=== PATIENT | male | born 1955 | race Caucasian/White ===

== ENCOUNTER → 2016-07-19 | Outpatient (CLI) | payer MEDICARE, MEDICAID ==
[2016-07-19 14:47] LABS: CHLORIDE,CL 106 mmol/L (98-110); SODIUM,NA 138 mmol/L (136-146)
== END | disposition home or self-care (01) ==
LOC: MW.CHIM 13:54
PROVIDERS: ATTEND Internal Medicine
DX: E11.65 Type 2 diabetes mellitus with hyperglycemia (principal); I10 Essential (primary) hypertension; E78.5 Hyperlipidemia, unspecified; Z72.0 Tobacco use
CPT/HCPCS: 36415; 80048; 83036; G0463

== ENCOUNTER → 2016-08-18 | Outpatient (CLI) | payer MEDICARE, MEDICAID | LOC: MW.CHPOD 08:00 | PROVIDERS: ATTEND Podiatrist Foot & Ankle Surgery | DX: E11.65 Type 2 diabetes mellitus with hyperglycemia (principal); E11.40 Type 2 diabetes mellitus with diabetic neuropathy, unspecified; M79.672 Pain in left foot; M20.5X2 Other deformities of toe(s) (acquired), left foot; B35.1 Tinea unguium; I10 Essential (primary) hypertension; E78.5 Hyperlipidemia, unspecified | CPT/HCPCS: 11721; 99204; 99214 ==

== ENCOUNTER 2024-05-18 08:29 | Inpatient (IN) | payer MEDICARE, MEDICAID ==
[2024-05-18] MEDS ORDERED: Sodium Chloride 0.9% 2.5 ML Syringe FLUSH PRN (08:39)
[2024-05-18] MEDS: Ondansetron 4 MG/2 ML SDV IVPUSH ONE (09:16)
[2024-05-18] MEDS: fentaNYL 50 MCG/ML SDV IVPUSH ONE (09:16)
[2024-05-18] MEDS: Sodium Chloride 0.9% 10 ML Syringe FLUSH PRN (09:16)
[2024-05-18 09:22] LABS: BASOPHILS ABSOLUTE AUTO 0.02 K/uL (0.00-0.20); BASOPHILS PERCENT AUTO 0.3 % (0.0-1.0); EOSINOPHILS ABSOLUTE AUTO 0.05 K/uL (0.00-0.45); EOSINOPHILS PERCENT AUTO 0.7 % (0.0-6.0); HEMATOCRIT 27.7 % (42.0-52.0); HEMOGLOBIN 8.2 g/dL (14.0-18.0); IMMATURE GRAN ABSOLUTE AUTO 0.03 K/uL (0.00-0.05); IMMATURE GRAN PERCENT AUTO 0.4 % (0.0-0.4); LYMPHOCYTES ABSOLUTE AUTO 0.22 K/uL (1.00-4.80); LYMPHOCYTES PERCENT AUTO 3.2 % (24.0-44.0); MEAN CORPUSCULAR HEMOGLOBIN 22.6 pg (28.0-32.0); MEAN CORPUSCULAR HGB CONC 29.6 g/dL (32.0-36.0); MEAN CORPUSCULAR VOLUME 76.3 fL (83.0-99.0); MEAN PLATELET VOLUME 11.2 fL (9.4-12.4); MONOCYTES ABSOLUTE AUTO 0.72 K/uL (0.00-0.80); MONOCYTES PERCENT AUTO 10.4 % (0.0-8.0); NEUTROPHILS ABSOLUTE AUTO 5.91 K/uL (1.80-7.70); PLATELET COUNT,PLT 233 K/uL (150-400); RED BLOOD CELL COUNT 3.63 M/uL (4.52-5.90); WHITE BLOOD CELL COUNT,WBC 6.95 K/uL (3.9-11.3)
[2024-05-18 09:34] LABS: INR 1.03 (0.86-1.11); PTT,PARTIAL THROMBOPLSTIN TIME 24.5 SEC (23.9-30.7)
[2024-05-18 09:46] LABS: A/G RATIO 1.1 (0.9-1.6); ALBUMIN 3.2 g/dL (3.4-5.0); BILIRUBIN TOTAL 0.2 mg/dL (0.2-1.0); CALCIUM 7.8 mg/dL (8.5-10.1); CARBON DIOXIDE,CO2 18.5 mmol/L (21.0-32.0); CREATININE 1.1 mg/dL (0.8-1.3); EST CRCL DRUG DOSING (CG) 61.76 mL/min; PROTEIN TOTAL,TP 6.2 g/dL (6.4-8.2)
[2024-05-18] MEDS ORDERED: Naloxone 0.4 MG/ML SDV IVPUSH PRN (10:19)
[2024-05-18 15:46] LABS: APPEARANCE,URINE CLEAR; BILIRUBIN,URINE NEGATIVE (NEGATIVE); COLOR,URINE YELLOW; GLUCOSE,URINE >=1000 mg/dL (NEGATIVE); KETONES,URINE NEGATIVE (NEGATIVE); LEUKOCYTE ESTERASE,URINE NEGATIVE (NEGATIVE); NITRITE,URINE NEGATIVE (NEGATIVE); OCCULT BLOOD,URINE NEGATIVE (NEGATIVE); PH,URINE 6.5 (5.0-8.0); PROTEIN,URINE NEGATIVE (NEGATIVE); UROBILINOGEN,URINE 0.2 EU/dL (<2.0)
[2024-05-18] MEDS: Insulin Aspart 100 Units/ML 3 ML Pen SUBCUT SCH (17:48)
[2024-05-18] MEDS: Morphine 2 MG/ML SYRINGE IVPUSH PRN (18:13)
[2024-05-18] MEDS: Acyclovir 200 MG Cap PO SCH (20:06)
[2024-05-18] MEDS: atorvaSTATin 20 MG Tab PO SCH (20:06)
[2024-05-18] MEDS: OXcarbazepine 300 MG Tab PO SCH (20:06)
[2024-05-18] MEDS: Gabapentin 300 MG Cap PO SCH (20:06)
[2024-05-19] MEDS ORDERED: Sodium Chloride 0.9% 10 ML Syringe FLUSH PRN (08:21)
[2024-05-19] MEDS ORDERED: Polyethylene Glycol 3350 Powder 17 GM Packet PO PRN (08:21)
[2024-05-19] MEDS ORDERED: Sodium Chloride 0.9% 2.5 ML Syringe FLUSH PRN (08:21)
[2024-05-19] MEDS ORDERED: Docusate Sodium 100 MG Cap PO PRN (08:21)
[2024-05-19] MEDS ORDERED: Acetaminophen 325 MG Tab PO PRN (08:21)
[2024-05-19] MEDS ORDERED: Ondansetron 4 MG/2 ML SDV IVPUSH PRN (08:21)
[2024-05-19 08:45] LABS: BASOPHILS ABSOLUTE AUTO 0.01 K/uL (0.00-0.20); BASOPHILS PERCENT AUTO 0.1 % (0.0-1.0); EOSINOPHILS ABSOLUTE AUTO 0.01 K/uL (0.00-0.45); EOSINOPHILS PERCENT AUTO 0.1 % (0.0-6.0); HEMATOCRIT 26.9 % (42.0-52.0); HEMOGLOBIN 8.1 g/dL (14.0-18.0); IMMATURE GRAN ABSOLUTE AUTO 0.02 K/uL (0.00-0.05); IMMATURE GRAN PERCENT AUTO 0.3 % (0.0-0.4); LYMPHOCYTES ABSOLUTE AUTO 0.34 K/uL (1.00-4.80); LYMPHOCYTES PERCENT AUTO 4.9 % (24.0-44.0); MEAN CORPUSCULAR HEMOGLOBIN 22.4 pg (28.0-32.0); MEAN CORPUSCULAR HGB CONC 30.1 g/dL (32.0-36.0); MEAN CORPUSCULAR VOLUME 74.5 fL (83.0-99.0); MEAN PLATELET VOLUME 11.1 fL (9.4-12.4); MONOCYTES ABSOLUTE AUTO 1.28 K/uL (0.00-0.80); MONOCYTES PERCENT AUTO 18.6 % (0.0-8.0); NEUTROPHILS ABSOLUTE AUTO 5.22 K/uL (1.80-7.70); PLATELET COUNT,PLT 221 K/uL (150-400); RED BLOOD CELL COUNT 3.61 M/uL (4.52-5.90); WHITE BLOOD CELL COUNT,WBC 6.88 K/uL (3.9-11.3)
[2024-05-19 09:15] LABS: A/G RATIO 0.9 (0.9-1.6); BILIRUBIN TOTAL 0.5 mg/dL (0.2-1.0); CALCIUM 7.7 mg/dL (8.5-10.1); CARBON DIOXIDE,CO2 24.4 mmol/L (21.0-32.0); CREATININE 0.9 mg/dL (0.8-1.3); EST CRCL DRUG DOSING (CG) 75.48 mL/min; POTASSIUM,K 3.4 mmol/L (3.5-5.1); PROTEIN TOTAL,TP 6.2 g/dL (6.4-8.2)
[2024-05-19] MEDS: Isosorbide Mononitrate 30 MG Tab.ER PO SCH (10:54)
[2024-05-19] MEDS: Metoprolol Succinate 25 MG Tab.ER PO SCH (10:54)
[2024-05-19] MEDS: Escitalopram 10 MG Tab PO SCH (10:54)
[2024-05-19] MEDS: Potassium Chloride 20 MEQ Tab.ER PO ONE (10:55)
[2024-05-19] MEDS: OLANZapine 5 MG Tab PO SCH (10:55)
[2024-05-19] MEDS: Insulin Glargine,Hum.Rec.Anlog 100 UNIT/ML 3 ML Pen SUBCUT STA (11:59)
[2024-05-19] MEDS ORDERED: dexmedeTOMIDine HCl 200 MCG/2 ML SDV ONE (14:57)
[2024-05-19] MEDS ORDERED: Propofol 200 MG/20 ML SDV ONE (14:57)
[2024-05-19] MEDS ORDERED: fentaNYL 100 MCG/2 ML SDV ONE (14:57)
[2024-05-19] MEDS ORDERED: Ketamine HCL/NACL, ISO-OSM 50 MG/5 ML Syringe ONE (15:01)
[2024-05-19] MEDS: ceFAZolin 2 GM in Sodium Chloride 0.9% 50 ML IV ONE (17:40)
[2024-05-19] MEDS: Tranexamic Acid in NACL,ISO-OS 1,000 MG in Premix Bag 1 BAG IV ONE (17:41)
[2024-05-19] MEDS: Heparin Sodium 5,000 Units/ML Vial SUBCUT SCH (17:59)
[2024-05-20 05:44] LABS: HEMATOCRIT 28.6 % (42.0-52.0); HEMOGLOBIN 8.8 g/dL (14.0-18.0); MEAN CORPUSCULAR HEMOGLOBIN 23.2 pg (28.0-32.0); MEAN CORPUSCULAR HGB CONC 30.8 g/dL (32.0-36.0); MEAN CORPUSCULAR VOLUME 75.3 fL (83.0-99.0); MEAN PLATELET VOLUME 10.9 fL (9.4-12.4); PLATELET COUNT,PLT 240 K/uL (150-400); WHITE BLOOD CELL COUNT,WBC 7.29 K/uL (3.9-11.3)
[2024-05-20 06:15] LABS: CALCIUM 7.9 mg/dL (8.5-10.1); CARBON DIOXIDE,CO2 22.9 mmol/L (21.0-32.0); CREATININE 0.8 mg/dL (0.8-1.3); EST CRCL DRUG DOSING (CG) 84.92 mL/min; MAGNESIUM 2.1 mg/dL (1.8-2.4); POTASSIUM,K 3.4 mmol/L (3.5-5.1)
[2024-05-20 06:20] LABS: LYMPHOCYTES ABSOLUTE MAN 0.66 K/uL (1.00-4.80); LYMPHOCYTES PERCENT MAN 9 % (24-44); MONOCYTES ABSOLUTE MAN 0.87 K/uL (0.00-0.80); MONOCYTES PERCENT MAN 12 % (0-8); SEG NEUTROPHILS ABSOLUTE MAN 5.76 K/uL (1.80-7.70); SEG NEUTROPHILS PERCENT MAN 79 % (41-71)
[2024-05-20] MEDS: Potassium Chloride 20 MEQ Tab.ER PO ONE (09:04)
[2024-05-20] MEDS: Insulin Glargine,Hum.Rec.Anlog 100 UNIT/ML 3 ML Pen SUBCUT ONE (11:22)
[2024-05-20] MEDS: OXcarbazepine 300 MG Tab PO SCH (20:30)
[2024-05-21 05:47] LABS: BASOPHILS ABSOLUTE AUTO 0.01 K/uL (0.00-0.20); BASOPHILS PERCENT AUTO 0.2 % (0.0-1.0); HEMATOCRIT 27.5 % (42.0-52.0); HEMOGLOBIN 8.5 g/dL (14.0-18.0); IMMATURE GRAN ABSOLUTE AUTO 0.05 K/uL (0.00-0.05); IMMATURE GRAN PERCENT AUTO 0.8 % (0.0-0.4); LYMPHOCYTES ABSOLUTE AUTO 0.29 K/uL (1.00-4.80); LYMPHOCYTES PERCENT AUTO 4.4 % (24.0-44.0); MEAN CORPUSCULAR HEMOGLOBIN 23.2 pg (28.0-32.0); MEAN CORPUSCULAR HGB CONC 30.9 g/dL (32.0-36.0); MEAN CORPUSCULAR VOLUME 74.9 fL (83.0-99.0); MEAN PLATELET VOLUME 11.6 fL (9.4-12.4); MONOCYTES ABSOLUTE AUTO 1.14 K/uL (0.00-0.80); MONOCYTES PERCENT AUTO 17.4 % (0.0-8.0); NEUTROPHILS ABSOLUTE AUTO 5.05 K/uL (1.80-7.70); NEUTROPHILS PERCENT AUTO 77.2 % (41.0-71.0); PLATELET COUNT,PLT 245 K/uL (150-400); RED BLOOD CELL COUNT 3.67 M/uL (4.52-5.90); WHITE BLOOD CELL COUNT,WBC 6.54 K/uL (3.9-11.3)
[2024-05-21 06:16] LABS: CALCIUM 8.1 mg/dL (8.5-10.1); CARBON DIOXIDE,CO2 21.8 mmol/L (21.0-32.0); CREATININE 0.8 mg/dL (0.8-1.3); EST CRCL DRUG DOSING (CG) 84.92 mL/min; POTASSIUM,K 3.4 mmol/L (3.5-5.1)
[2024-05-21] MEDS ORDERED: Metoclopramide 10 MG/2 ML SDV IVPUSH PRN (07:29)
[2024-05-21] MEDS ORDERED: Morphine 2 MG/ML SYRINGE IVPUSH PRN (07:29)
[2024-05-21] MEDS ORDERED: Albuterol 0.083% 2.5 MG/3 ML Neb Soln NEB PRN (07:29)
[2024-05-21] MEDS ORDERED: HYDROmorphone 1 MG/ML Syringe IVPUSH PRN (07:29)
[2024-05-21] MEDS ORDERED: Phenylephrine HCl In 0.9% NaCl 1 MG/10 ML Syringe IVPUSH PRN (07:29)
[2024-05-21] MEDS ORDERED: fentaNYL 50 MCG/ML SDV IVPUSH PRN (07:29)
[2024-05-21] MEDS ORDERED: Naloxone 0.4 MG/ML SDV IVPUSH PRN (07:29)
[2024-05-21] MEDS ORDERED: Ondansetron 4 MG/2 ML SDV IVPUSH PRN (07:29)
[2024-05-21] MEDS ORDERED: Midazolam 1 MG/ML 2 ML SDV ONE (09:32)
[2024-05-21] MEDS ORDERED: Lidocaine 2% 5 ML SDV ONE (09:32)
[2024-05-21] MEDS ORDERED: fentaNYL 100 MCG/2 ML SDV ONE (09:32)
[2024-05-21] MEDS ORDERED: Propofol 200 MG/20 ML SDV ONE (09:32)
[2024-05-21] MEDS ORDERED: Rocuronium Bromide 50 MG/5 ML Syringe ONE ×2 (09:33→11:09)
[2024-05-21] MEDS ORDERED: ceFAZolin 1 GM Vial ONE (10:48)
[2024-05-21] MEDS ORDERED: Tranexamic Acid 1,000 MG/10 ML Vial ONE (10:55)
[2024-05-21] MEDS ORDERED: Ondansetron 4 MG/2 ML SDV ONE (12:28)
[2024-05-21] MEDS ORDERED: Sugammadex Sodium 200 MG/2 ML VIAL IV ONE (12:29)
[2024-05-21] MEDS ORDERED: Glycopyrrolate 0.2 MG/ML SDV ONE (12:30)
[2024-05-21] MEDS: Acetaminophen 325 MG Tab PO SCH (16:44)
[2024-05-21] MEDS: ceFAZolin 2 GM in Sodium Chloride 0.9% 50 ML IV SCH (18:27)
[2024-05-22 06:14] LABS: HEMATOCRIT 25.9 % (42.0-52.0); HEMOGLOBIN 7.8 g/dL (14.0-18.0); IMMATURE GRAN ABSOLUTE AUTO 0.04 K/uL (0.00-0.05); IMMATURE GRAN PERCENT AUTO 0.9 % (0.0-0.4); LYMPHOCYTES ABSOLUTE AUTO 0.16 K/uL (1.00-4.80); LYMPHOCYTES PERCENT AUTO 3.5 % (24.0-44.0); MEAN CORPUSCULAR HEMOGLOBIN 22.9 pg (28.0-32.0); MEAN CORPUSCULAR HGB CONC 30.1 g/dL (32.0-36.0); MEAN PLATELET VOLUME 11.7 fL (9.4-12.4); MONOCYTES ABSOLUTE AUTO 0.77 K/uL (0.00-0.80); MONOCYTES PERCENT AUTO 17.1 % (0.0-8.0); NEUTROPHILS ABSOLUTE AUTO 3.54 K/uL (1.80-7.70); NEUTROPHILS PERCENT AUTO 78.5 % (41.0-71.0); PLATELET COUNT,PLT 273 K/uL (150-400); RED BLOOD CELL COUNT 3.41 M/uL (4.52-5.90); WHITE BLOOD CELL COUNT,WBC 4.51 K/uL (3.9-11.3)
[2024-05-22 06:39] LABS: CALCIUM 7.3 mg/dL (8.5-10.1); CARBON DIOXIDE,CO2 20.9 mmol/L (21.0-32.0); CREATININE 0.7 mg/dL (0.8-1.3); EST CRCL DRUG DOSING (CG) 97.05 mL/min
[2024-05-22 06:59] LABS: POTASSIUM,K 2.9 mmol/L (3.5-5.1)
[2024-05-22] MEDS: Enoxaparin 40 MG/0.4 ML Syringe SUBCUT SCH (08:38)
[2024-05-22] MEDS: Insulin Glargine,Hum.Rec.Anlog 100 UNIT/ML 3 ML Pen SUBCUT SCH (09:10)
[2024-05-22] MEDS: Potassium Chloride 20 MEQ Tab.ER PO SCH (09:11)
[2024-05-22] MEDS: oxyCODONE 5 MG Tab PO PRN (10:30)
[2024-05-23 05:44] LABS: HEMOGLOBIN 8.6 g/dL (14.0-18.0); MEAN CORPUSCULAR HEMOGLOBIN 24.1 pg (28.0-32.0); MEAN CORPUSCULAR HGB CONC 31.9 g/dL (32.0-36.0); MEAN CORPUSCULAR VOLUME 75.6 fL (83.0-99.0); MEAN PLATELET VOLUME 10.4 fL (9.4-12.4); PLATELET COUNT,PLT 244 K/uL (150-400); RED BLOOD CELL COUNT 3.57 M/uL (4.52-5.90); WHITE BLOOD CELL COUNT,WBC 3.51 K/uL (3.9-11.3)
[2024-05-23 06:01] LABS: LYMPHOCYTES ABSOLUTE MAN 0.18 K/uL (1.00-4.80); LYMPHOCYTES PERCENT MAN 5 % (24-44); MONOCYTES PERCENT MAN 20 % (0-8); SEG NEUTROPHILS ABSOLUTE MAN 2.63 K/uL (1.80-7.70); SEG NEUTROPHILS PERCENT MAN 75 % (41-71)
[2024-05-23 06:05] LABS: CALCIUM 7.4 mg/dL (8.5-10.1); CARBON DIOXIDE,CO2 21.3 mmol/L (21.0-32.0); CREATININE 0.6 mg/dL (0.8-1.3); EST CRCL DRUG DOSING (CG) 113.23 mL/min; MAGNESIUM 2.1 mg/dL (1.8-2.4); POTASSIUM,K 3.2 mmol/L (3.5-5.1)
[2024-05-23] MEDS: Insulin Glargine,Hum.Rec.Anlog 100 UNIT/ML 3 ML Pen SUBCUT SCH (08:29)
[2024-05-23] MEDS: Potassium Chloride 20 MEQ Tab.ER PO SCH (08:51)
[2024-05-24 05:40] LABS: BASOPHILS ABSOLUTE AUTO 0.01 K/uL (0.00-0.20); BASOPHILS PERCENT AUTO 0.4 % (0.0-1.0); EOSINOPHILS ABSOLUTE AUTO 0.01 K/uL (0.00-0.45); EOSINOPHILS PERCENT AUTO 0.4 % (0.0-6.0); HEMATOCRIT 29.8 % (42.0-52.0); IMMATURE GRAN ABSOLUTE AUTO 0.01 K/uL (0.00-0.05); IMMATURE GRAN PERCENT AUTO 0.4 % (0.0-0.4); LYMPHOCYTES ABSOLUTE AUTO 0.21 K/uL (1.00-4.80); LYMPHOCYTES PERCENT AUTO 7.4 % (24.0-44.0); MEAN CORPUSCULAR HEMOGLOBIN 23.1 pg (28.0-32.0); MEAN CORPUSCULAR HGB CONC 30.2 g/dL (32.0-36.0); MEAN CORPUSCULAR VOLUME 76.6 fL (83.0-99.0); MEAN PLATELET VOLUME 10.8 fL (9.4-12.4); MONOCYTES PERCENT AUTO 17.7 % (0.0-8.0); NEUTROPHILS ABSOLUTE AUTO 2.09 K/uL (1.80-7.70); NEUTROPHILS PERCENT AUTO 73.7 % (41.0-71.0); PLATELET COUNT,PLT 262 K/uL (150-400); RED BLOOD CELL COUNT 3.89 M/uL (4.52-5.90); WHITE BLOOD CELL COUNT,WBC 2.83 K/uL (3.9-11.3)
[2024-05-24 06:08] LABS: CALCIUM 7.9 mg/dL (8.5-10.1); CARBON DIOXIDE,CO2 19.1 mmol/L (21.0-32.0); CREATININE 0.6 mg/dL (0.8-1.3); EST CRCL DRUG DOSING (CG) 113.23 mL/min; MAGNESIUM 2.1 mg/dL (1.8-2.4); POTASSIUM,K 3.4 mmol/L (3.5-5.1)
[2024-05-24] MEDS: Potassium Chloride 20 MEQ Tab.ER PO ONE (11:06)
[2024-05-25 05:42] LABS: HEMATOCRIT 27.7 % (42.0-52.0); HEMOGLOBIN 8.8 g/dL (14.0-18.0); MEAN CORPUSCULAR HGB CONC 31.8 g/dL (32.0-36.0); MEAN CORPUSCULAR VOLUME 75.5 fL (83.0-99.0); MEAN PLATELET VOLUME 10.5 fL (9.4-12.4); PLATELET COUNT,PLT 267 K/uL (150-400); RED BLOOD CELL COUNT 3.67 M/uL (4.52-5.90); WHITE BLOOD CELL COUNT,WBC 2.33 K/uL (3.9-11.3)
[2024-05-25 06:03] LABS: CALCIUM 7.9 mg/dL (8.5-10.1); CARBON DIOXIDE,CO2 22.2 mmol/L (21.0-32.0); CREATININE 0.5 mg/dL (0.8-1.3); EST CRCL DRUG DOSING (CG) 135.87 mL/min; MAGNESIUM 1.7 mg/dL (1.8-2.4); POTASSIUM,K 3.1 mmol/L (3.5-5.1)
[2024-05-25 06:07] LABS: LYMPHOCYTES ABSOLUTE MAN 0.33 K/uL (1.00-4.80); LYMPHOCYTES PERCENT MAN 14 % (24-44); MONOCYTES ABSOLUTE MAN 0.47 K/uL (0.00-0.80); MONOCYTES PERCENT MAN 20 % (0-8); SEG NEUTROPHILS ABSOLUTE MAN 1.54 K/uL (1.80-7.70); SEG NEUTROPHILS PERCENT MAN 66 % (41-71)
[2024-05-25] MEDS: Potassium Chloride 20 MEQ Tab.ER PO SCH (11:23)
[2024-05-25] MEDS: Magnesium Sulfate/Water Premix 2 GM in Premix Bag 1 BAG IV ONE (11:24)
[2024-05-26 05:50] LABS: HEMATOCRIT 29.6 % (42.0-52.0); HEMOGLOBIN 9.2 g/dL (14.0-18.0); MEAN CORPUSCULAR HEMOGLOBIN 23.6 pg (28.0-32.0); MEAN CORPUSCULAR HGB CONC 31.1 g/dL (32.0-36.0); MEAN CORPUSCULAR VOLUME 75.9 fL (83.0-99.0); MEAN PLATELET VOLUME 10.3 fL (9.4-12.4); PLATELET COUNT,PLT 272 K/uL (150-400); WHITE BLOOD CELL COUNT,WBC 1.99 K/uL (3.9-11.3)
[2024-05-26 06:18] LABS: CALCIUM 7.8 mg/dL (8.5-10.1); CREATININE 0.5 mg/dL (0.8-1.3); EST CRCL DRUG DOSING (CG) 135.87 mL/min; MAGNESIUM 1.8 mg/dL (1.8-2.4); POTASSIUM,K 3.5 mmol/L (3.5-5.1)
[2024-05-26 06:22] LABS: EOSINOPHILS ABSOLUTE MAN 0.02 K/uL (0.00-0.45); EOSINOPHILS PERCENT MAN 1 % (0-6); LYMPHOCYTES ABSOLUTE MAN 0.28 K/uL (1.00-4.80); LYMPHOCYTES PERCENT MAN 14 % (24-44); MONOCYTES PERCENT MAN 25 % (0-8); SEG NEUTROPHILS ABSOLUTE MAN 1.19 K/uL (1.80-7.70); SEG NEUTROPHILS PERCENT MAN 60 % (41-71)
[2024-05-26] MEDS ORDERED: Glucagon,Human Recombinant 1 MG Vial IM PRN (09:41)
[2024-05-26] MEDS ORDERED: 50% Dextrose in Water 50 ML Syringe IVPUSH PRN (09:41)
[2024-05-26] MEDS: Loperamide 2 MG Cap PO ONE (11:14)
[2024-05-26] MEDS: Insulin Aspart 100 Units/ML 3 ML Pen SUBCUT SCH (11:18)
[2024-05-26] MEDS: Cyclobenzaprine 5 MG Tab PO ONE (13:50)
[2024-05-26] MEDS: Insulin Glargine,Hum.Rec.Anlog 100 UNIT/ML 3 ML Pen SUBCUT SCH (20:40)
[2024-05-27 06:08] LABS: HEMATOCRIT 30.3 % (42.0-52.0); HEMOGLOBIN 9.7 g/dL (14.0-18.0); MEAN CORPUSCULAR HEMOGLOBIN 24.1 pg (28.0-32.0); MEAN CORPUSCULAR VOLUME 75.4 fL (83.0-99.0); MEAN PLATELET VOLUME 10.3 fL (9.4-12.4); PLATELET COUNT,PLT 312 K/uL (150-400); RED BLOOD CELL COUNT 4.02 M/uL (4.52-5.90); WHITE BLOOD CELL COUNT,WBC 2.53 K/uL (3.9-11.3)
[2024-05-27 06:29] LABS: CALCIUM 8.2 mg/dL (8.5-10.1); CARBON DIOXIDE,CO2 23.7 mmol/L (21.0-32.0); CREATININE 0.6 mg/dL (0.8-1.3); EST CRCL DRUG DOSING (CG) 113.23 mL/min; MAGNESIUM 1.6 mg/dL (1.8-2.4); POTASSIUM,K 3.3 mmol/L (3.5-5.1)
[2024-05-27 06:42] LABS: BAND ABSOLUTE MAN 0.03; BAND PERCENT MAN 1 %; EOSINOPHILS ABSOLUTE MAN 0.05 K/uL (0.00-0.45); EOSINOPHILS PERCENT MAN 2 % (0-6); LYMPHOCYTES ABSOLUTE MAN 0.53 K/uL (1.00-4.80); LYMPHOCYTES PERCENT MAN 21 % (24-44); MONOCYTES ABSOLUTE MAN 0.56 K/uL (0.00-0.80); MONOCYTES PERCENT MAN 22 % (0-8); SEG NEUTROPHILS ABSOLUTE MAN 1.37 K/uL (1.80-7.70); SEG NEUTROPHILS PERCENT MAN 54 % (41-71)
[2024-05-27] MEDS: Potassium Chloride 20 MEQ Tab.ER PO ONE (10:35)
[2024-05-27] MEDS: Magnesium Sulfate/Water Premix 2 GM in Premix Bag 1 BAG IV ONE (10:35)
[2024-05-27] MEDS: Loperamide 2 MG Cap PO PRN (20:03)
[2024-05-27] MEDS: Insulin Glargine,Hum.Rec.Anlog 100 UNIT/ML 3 ML Pen SUBCUT SCH (20:05)
[2024-05-28 06:07] LABS: HEMOGLOBIN 9.4 g/dL (14.0-18.0); MEAN CORPUSCULAR HEMOGLOBIN 23.9 pg (28.0-32.0); MEAN CORPUSCULAR HGB CONC 31.3 g/dL (32.0-36.0); MEAN CORPUSCULAR VOLUME 76.1 fL (83.0-99.0); MEAN PLATELET VOLUME 10.8 fL (9.4-12.4); PLATELET COUNT,PLT 333 K/uL (150-400); RED BLOOD CELL COUNT 3.94 M/uL (4.52-5.90); WHITE BLOOD CELL COUNT,WBC 2.47 K/uL (3.9-11.3)
[2024-05-28 06:49] LABS: EOSINOPHILS ABSOLUTE MAN 0.02 K/uL (0.00-0.45); EOSINOPHILS PERCENT MAN 1 % (0-6); LYMPHOCYTES ABSOLUTE MAN 0.54 K/uL (1.00-4.80); LYMPHOCYTES PERCENT MAN 22 % (24-44); MONOCYTES ABSOLUTE MAN 0.59 K/uL (0.00-0.80); MONOCYTES PERCENT MAN 24 % (0-8); SEG NEUTROPHILS ABSOLUTE MAN 1.31 K/uL (1.80-7.70); SEG NEUTROPHILS PERCENT MAN 53 % (41-71)
[2024-05-28 06:56] LABS: CALCIUM 8.1 mg/dL (8.5-10.1); CARBON DIOXIDE,CO2 24.6 mmol/L (21.0-32.0); CREATININE 0.6 mg/dL (0.8-1.3); EST CRCL DRUG DOSING (CG) 113.23 mL/min; MAGNESIUM 1.7 mg/dL (1.8-2.4); POTASSIUM,K 3.4 mmol/L (3.5-5.1)
[2024-05-28] MEDS: Potassium Chloride 20 MEQ Tab.ER PO ONE (07:41)
[2024-05-28] MEDS: Magnesium Sulfate/Water Premix 2 GM in Premix Bag 1 BAG IV ONE (07:41)
[2024-05-29 05:55] LABS: HEMATOCRIT 31.1 % (42.0-52.0); HEMOGLOBIN 9.9 g/dL (14.0-18.0); MEAN CORPUSCULAR HEMOGLOBIN 24.4 pg (28.0-32.0); MEAN CORPUSCULAR HGB CONC 31.8 g/dL (32.0-36.0); MEAN CORPUSCULAR VOLUME 76.6 fL (83.0-99.0); MEAN PLATELET VOLUME 11.3 fL (9.4-12.4); PLATELET COUNT,PLT 385 K/uL (150-400); RED BLOOD CELL COUNT 4.06 M/uL (4.52-5.90); WHITE BLOOD CELL COUNT,WBC 2.44 K/uL (3.9-11.3)
[2024-05-29 06:24] LABS: CALCIUM 8.4 mg/dL (8.5-10.1); CARBON DIOXIDE,CO2 23.6 mmol/L (21.0-32.0); CREATININE 0.6 mg/dL (0.8-1.3); EST CRCL DRUG DOSING (CG) 113.23 mL/min; MAGNESIUM 1.9 mg/dL (1.8-2.4); POTASSIUM,K 3.2 mmol/L (3.5-5.1)
[2024-05-29 06:40] LABS: BASOPHILS ABSOLUTE MAN 0.02 K/uL (0.00-0.20); BASOPHILS PERCENT MAN 1 % (0-1); EOSINOPHILS ABSOLUTE MAN 0.05 K/uL (0.00-0.45); EOSINOPHILS PERCENT MAN 2 % (0-6); LYMPHOCYTES ABSOLUTE MAN 0.63 K/uL (1.00-4.80); LYMPHOCYTES PERCENT MAN 26 % (24-44); MONOCYTES ABSOLUTE MAN 0.46 K/uL (0.00-0.80); MONOCYTES PERCENT MAN 19 % (0-8); SEG NEUTROPHILS ABSOLUTE MAN 1.27 K/uL (1.80-7.70); SEG NEUTROPHILS PERCENT MAN 52 % (41-71)
== END 2024-05-29 12:36 | disposition home health service (06) | DRG 481 ==
LOC: MW.ED 08:29 → MW.MS 10:19
PROVIDERS: ADMIT Internal Medicine; ATTEND Internal Medicine
PROC: 30233N1 Transfusion of Nonautologous Red Blood Cells into Peripheral Vein, Percutaneous Approach (ICD-10-PCS; 2024-05-19)
PROC: 0QS604Z Reposition Right Upper Femur with Internal Fixation Device, Open Approach (ICD-10-PCS; principal; 2024-05-21 09:30)
DX: S72.141A Displaced intertrochanteric fracture of right femur, initial encounter for closed fracture (principal); S72.001A Fracture of unspecified part of neck of right femur, initial encounter for closed fracture; C90.00 Multiple myeloma not having achieved remission; I10 Essential (primary) hypertension; W18.30XA Fall on same level, unspecified, initial encounter; E11.9 Type 2 diabetes mellitus without complications; E78.00 Pure hypercholesterolemia, unspecified; F17.210 Nicotine dependence, cigarettes, uncomplicated; Z75.8 Other problems related to medical facilities and other health care; W19.XXXA Unspecified fall, initial encounter; Z92.3 Personal history of irradiation; Z79.82 Long term (current) use of aspirin; Z79.1 Long term (current) use of non-steroidal anti-inflammatories (NSAID); Z79.899 Other long term (current) drug therapy; Z86.16 Personal history of COVID-19; Z90.89 Acquired absence of other organs; Z79.4 Long term (current) use of insulin; Y93.89 Activity, other specified; Y92.002 Bathroom of unspecified non-institutional (private) residence as the place of occurrence of the external cause
CPT/HCPCS: 01230; 36415; 36430; 71045; 71045-26; 73502-26-RT; 73502-RT; 80048; 80053; 81003; 82947; 83735; 84132; 85025; 85610; 85730; 86156; 86850; 86870; 86900; 86901; 86920; 86921; 86922; 93005; 93010; 96374; 96375; 97110-GP; 97116-GP; 97163-GP; 97530-GP; 99222; 99231; 99232; 99239; 99284; 99285-25; A9270-GY; C1713; C1769; J0131; J0690; J1596; J1644; J1650; J1815-GY; J2250; J2270; J2405; J2704; J3010; J3475; J3490; P9016

== ENCOUNTER 2025-01-19 10:24 | Emergency (ER) | payer MEDICARE, MEDICAID ==
[2025-01-19] MEDS ORDERED: Sodium Chloride 0.9% 10 ML Syringe FLUSH PRN (10:32)
[2025-01-19] MEDS ORDERED: Sodium Chloride 0.9% 2.5 ML Syringe FLUSH PRN (10:32)
[2025-01-19 11:07] LABS: BASOPHILS ABSOLUTE AUTO 0.02 K/uL (0.00-0.20); BASOPHILS PERCENT AUTO 0.3 % (0.0-1.0); EOSINOPHILS ABSOLUTE AUTO 0.05 K/uL (0.00-0.45); EOSINOPHILS PERCENT AUTO 0.7 % (0.0-6.0); IMMATURE GRAN ABSOLUTE AUTO 0.03 K/uL (0.00-0.05); IMMATURE GRAN PERCENT AUTO 0.4 % (0.0-0.4); LYMPHOCYTES ABSOLUTE AUTO 0.91 K/uL (1.00-4.80); LYMPHOCYTES PERCENT AUTO 13.6 % (24.0-44.0); MEAN PLATELET VOLUME 9.5 fL (9.4-12.4); MONOCYTES ABSOLUTE AUTO 0.47 K/uL (0.00-0.80); MONOCYTES PERCENT AUTO 7.0 % (0.0-8.0); NEUTROPHILS ABSOLUTE AUTO 5.23 K/uL (1.80-7.70); NEUTROPHILS PERCENT AUTO 78.0 % (41.0-71.0); NRBC ABSOLUTE 0.00 K/uL (0.00-0.02); NRBC PERCENT 0.0 /100WBC (0.0-0.2); PLATELET COUNT,PLT 366 K/uL (150-400); RED BLOOD CELL COUNT 4.82 M/uL (4.52-5.90); WHITE BLOOD CELL COUNT,WBC 6.71 K/uL (3.9-11.3)
[2025-01-19 11:33] LABS: A/G RATIO 0.8 (0.9-1.6); ALANINE AMINOTRANSFERASE,ALT 16.0 IU/L (14-63); ASPARTATE AMNIOTRANSFERASE,AST 16.0 IU/L (15-37); BILIRUBIN TOTAL 0.2 mg/dL (0.2-1.0); BLOOD UREA NITROGEN,BUN 12.0 mg/dL (7.0-18.0); CARBON DIOXIDE,CO2 26.5 mmol/L (21.0-32.0); CHLORIDE,CL 104.0 mmol/L (98-107); CREATININE 0.9 mg/dL (0.8-1.3); EST CRCL DRUG DOSING (CG) 74.46 mL/min; ESTIMATED GFR 94.0 mL/min (>60); GLUCOSE RANDOM 141.0 mg/dL (74-106); POTASSIUM,K 4.3 mmol/L (3.5-5.1); PROTEIN TOTAL,TP 7.2 g/dL (6.4-8.2); SODIUM,NA 141.0 mmol/L (136-148)
[2025-01-19 11:37] LABS: LACTIC ACID 1.5 mmol/L (0.4-2.0)
[2025-01-19 11:51] LABS: INR 1.01 (0.86-1.11); PTT,PARTIAL THROMBOPLSTIN TIME 26.5 SEC (23.9-30.7)
[2025-01-19] MEDS: Iopamidol 755 MG/ML 500 ML Multipack Bottle IVPUSH STA (11:53)
[2025-01-19] MEDS: Heparin Sodium 5,000 Units/ML Vial IVPUSH ONE (13:55)
[2025-01-19] MEDS: Heparin Sodium/0.45% NaCl 25,000 UNITS/250 ML BAG IV SCH (13:57)
[2025-01-19 14:26] LABS: APPEARANCE,URINE CLEAR; GLUCOSE,URINE >=1000 mg/dL (NEGATIVE); OCCULT BLOOD,URINE NEGATIVE (NEGATIVE)
[2025-01-19 14:36] LABS: EPITHELIAL CELLS,URINE RARE (NONE-FEW)
== END 2025-01-19 14:31 ==
LOC: MW.ED 10:24
DX: I77.1 Stricture of artery (principal); I70.221 Atherosclerosis of native arteries of extremities with rest pain, right leg; Z88.8 Allergy status to other drugs, medicaments and biological substances; Z79.899 Other long term (current) drug therapy; Z79.4 Long term (current) use of insulin; I10 Essential (primary) hypertension; E11.9 Type 2 diabetes mellitus without complications
CPT/HCPCS: 36415; 73630; 75635; 80053; 81001; 83036; 83605; 85025; 85610; 85730; 87040; 96365; 99285; J1644; Q9967; 99284

== ENCOUNTER 2025-03-06 13:25 | Emergency (ER) | payer MEDICARE, MEDICAID ==
[2025-03-06 15:40] LABS: BASOPHILS ABSOLUTE AUTO 0.02 K/uL (0.00-0.20); BASOPHILS PERCENT AUTO 0.2 % (0.0-1.0); EOSINOPHILS ABSOLUTE AUTO 0.04 K/uL (0.00-0.45); EOSINOPHILS PERCENT AUTO 0.4 % (0.0-6.0); IMMATURE GRAN ABSOLUTE AUTO 0.02 K/uL (0.00-0.05); IMMATURE GRAN PERCENT AUTO 0.2 % (0.0-0.4); LYMPHOCYTES ABSOLUTE AUTO 0.95 K/uL (1.00-4.80); LYMPHOCYTES PERCENT AUTO 9.4 % (24.0-44.0); MEAN PLATELET VOLUME 9.6 fL (9.4-12.4); MONOCYTES ABSOLUTE AUTO 0.84 K/uL (0.00-0.80); MONOCYTES PERCENT AUTO 8.3 % (0.0-8.0); NEUTROPHILS ABSOLUTE AUTO 8.26 K/uL (1.80-7.70); NEUTROPHILS PERCENT AUTO 81.5 % (41.0-71.0); NRBC ABSOLUTE 0.00 K/uL (0.00-0.02); NRBC PERCENT 0.0 /100WBC (0.0-0.2); PLATELET COUNT,PLT 266 K/uL (150-400); RED BLOOD CELL COUNT 4.52 M/uL (4.52-5.90); WHITE BLOOD CELL COUNT,WBC 10.13 K/uL (3.9-11.3)
[2025-03-06 16:13] LABS: A/G RATIO 0.9 (0.9-1.6); ALANINE AMINOTRANSFERASE,ALT 19 IU/L (14-63); ASPARTATE AMNIOTRANSFERASE,AST 23 IU/L (15-37); BILIRUBIN TOTAL 0.4 mg/dL (0.2-1.0); BLOOD UREA NITROGEN,BUN 15 mg/dL (7.0-18.0); CARBON DIOXIDE,CO2 23.4 mmol/L (21.0-32.0); CHLORIDE,CL 106 mmol/L (98-107); CREATININE 0.8 mg/dL (0.8-1.3); GLUCOSE RANDOM 163 mg/dL (74-106); POTASSIUM,K 4.2 mmol/L (3.5-5.1); PROTEIN TOTAL,TP 6.2 g/dL (6.4-8.2); SODIUM,NA 139 mmol/L (136-148)
[2025-03-06 16:14] LABS: ESTIMATED GFR 97 mL/min (>60)
[2025-03-06 16:15] LABS: LACTIC ACID 2.1 mmol/L (0.4-2.0)
[2025-03-06] MEDS: Iopamidol 755 MG/ML 500 ML Multipack Bottle IVPUSH STA (16:43)
[2025-03-06] MEDS ORDERED: Lidocaine 2% Viscous Solution 15 ML UD PO ONE (19:47)
== END 2025-03-06 20:17 | disposition home or self-care (01) ==
LOC: MW.ED 13:25
DX: L08.9 Local infection of the skin and subcutaneous tissue, unspecified (principal); I10 Essential (primary) hypertension; E78.00 Pure hypercholesterolemia, unspecified; E11.9 Type 2 diabetes mellitus without complications; Z86.73 Personal history of transient ischemic attack (TIA), and cerebral infarction without residual deficits; Z75.3 Unavailability and inaccessibility of health-care facilities; Z79.899 Other long term (current) drug therapy; Z79.4 Long term (current) use of insulin
CPT/HCPCS: 36415; 73706; 80053; 83605; 83690; 83735; 85025; 87040; 96361; 96374; 99284; J1271; J7030; Q9967

== ENCOUNTER 2025-04-10 15:30 | Emergency (ER) | payer MEDICARE, MEDICAID ==
[2025-04-10] MEDS ORDERED: Sodium Chloride 0.9% 2.5 ML Syringe FLUSH PRN (15:52)
[2025-04-10] MEDS ORDERED: Sodium Chloride 0.9% 10 ML Syringe FLUSH PRN (15:52)
[2025-04-10 16:15] LABS: BASOPHILS ABSOLUTE AUTO 0.03 K/uL (0.00-0.20); BASOPHILS PERCENT AUTO 0.3 % (0.0-1.0); EOSINOPHILS ABSOLUTE AUTO 0.02 K/uL (0.00-0.45); EOSINOPHILS PERCENT AUTO 0.2 % (0.0-6.0); IMMATURE GRAN ABSOLUTE AUTO 0.03 K/uL (0.00-0.05); IMMATURE GRAN PERCENT AUTO 0.3 % (0.0-0.4); LYMPHOCYTES ABSOLUTE AUTO 1.21 K/uL (1.00-4.80); LYMPHOCYTES PERCENT AUTO 12.2 % (24.0-44.0); MEAN PLATELET VOLUME 10.0 fL (9.4-12.4); MONOCYTES ABSOLUTE AUTO 0.96 K/uL (0.00-0.80); MONOCYTES PERCENT AUTO 9.7 % (0.0-8.0); NEUTROPHILS ABSOLUTE AUTO 7.67 K/uL (1.80-7.70); NEUTROPHILS PERCENT AUTO 77.3 % (41.0-71.0); NRBC ABSOLUTE 0.00 K/uL (0.00-0.02); NRBC PERCENT 0.0 /100WBC (0.0-0.2); PLATELET COUNT,PLT 370 K/uL (150-400); RED BLOOD CELL COUNT 4.15 M/uL (4.52-5.90); WHITE BLOOD CELL COUNT,WBC 9.92 K/uL (3.9-11.3)
[2025-04-10 16:44] LABS: A/G RATIO 0.7 (0.9-1.6); ALANINE AMINOTRANSFERASE,ALT 15.0 IU/L (14-63); ASPARTATE AMNIOTRANSFERASE,AST 17.0 IU/L (15-37); BILIRUBIN TOTAL 0.2 mg/dL (0.2-1.0); BLOOD UREA NITROGEN,BUN 17.0 mg/dL (7.0-18.0); CARBON DIOXIDE,CO2 21.7 mmol/L (21.0-32.0); CHLORIDE,CL 99.0 mmol/L (98-107); CREATININE 1.0 mg/dL (0.8-1.3); EST CRCL DRUG DOSING (CG) 67.02 mL/min; ESTIMATED GFR 82.0 mL/min (>60); GLUCOSE RANDOM 382.0 mg/dL (74-106); POTASSIUM,K 4.2 mmol/L (3.5-5.1); PROTEIN TOTAL,TP 6.9 g/dL (6.4-8.2); SODIUM,NA 134.0 mmol/L (136-148)
[2025-04-10] MEDS ORDERED: 50% Dextrose in Water 50 ML Syringe IVPUSH PRN (16:46)
[2025-04-10 16:47] LABS: LACTIC ACID 3.3 mmol/L (0.4-2.0)
[2025-04-10] MEDS: Insulin Regular, Human 100 Units/ML 10 ML Vial IVPUSH ONE (17:01)
[2025-04-10] MEDS: Iopamidol 755 MG/ML 500 ML Multipack Bottle IVPUSH STA (17:24)
== END 2025-04-10 21:02 ==
LOC: MW.ED 15:30
DX: M86.9 Osteomyelitis, unspecified (principal); I10 Essential (primary) hypertension; E11.9 Type 2 diabetes mellitus without complications; Z89.421 Acquired absence of other right toe(s); Z79.4 Long term (current) use of insulin; Z79.899 Other long term (current) drug therapy
CPT/HCPCS: 36415; 73701; 80053; 82009; 82947; 83605; 85025; 87040; 87070; 87075; 87077; 87186; 87205; 96365; 96367; 99285; J2543; J3374; J7030; J7050; Q9967; 99284; J1815-GY

== ENCOUNTER 2025-05-08 10:48 | Emergency (ER) | payer MEDICAID, MEDICARE ==
[2025-05-08] MEDS ORDERED: Sodium Chloride 0.9% 10 ML Syringe FLUSH PRN (11:52)
[2025-05-08] MEDS ORDERED: Sodium Chloride 0.9% 2.5 ML Syringe FLUSH PRN (11:52)
[2025-05-08 11:58] LABS: BASOPHILS ABSOLUTE AUTO 0.01 K/uL (0.00-0.20); BASOPHILS PERCENT AUTO 0.1 % (0.0-1.0); EOSINOPHILS ABSOLUTE AUTO 0.01 K/uL (0.00-0.45); EOSINOPHILS PERCENT AUTO 0.1 % (0.0-6.0); IMMATURE GRAN ABSOLUTE AUTO 0.09 K/uL (0.00-0.05); IMMATURE GRAN PERCENT AUTO 0.8 % (0.0-0.4); LYMPHOCYTES ABSOLUTE AUTO 0.71 K/uL (1.00-4.80); LYMPHOCYTES PERCENT AUTO 6.0 % (24.0-44.0); MEAN PLATELET VOLUME 10.4 fL (9.4-12.4); MONOCYTES ABSOLUTE AUTO 1.30 K/uL (0.00-0.80); MONOCYTES PERCENT AUTO 11.0 % (0.0-8.0); NEUTROPHILS ABSOLUTE AUTO 9.68 K/uL (1.80-7.70); NEUTROPHILS PERCENT AUTO 82.0 % (41.0-71.0); NRBC ABSOLUTE 0.00 K/uL (0.00-0.02); NRBC PERCENT 0.0 /100WBC (0.0-0.2); PLATELET COUNT,PLT 286 K/uL (150-400); RED BLOOD CELL COUNT 4.27 M/uL (4.52-5.90); WHITE BLOOD CELL COUNT,WBC 11.80 K/uL (3.9-11.3)
[2025-05-08 12:17] LABS: A/G RATIO 0.9 (0.9-1.6); ALANINE AMINOTRANSFERASE,ALT 30.0 IU/L (14-63); ASPARTATE AMNIOTRANSFERASE,AST 32.0 IU/L (15-37); BILIRUBIN TOTAL 0.1 mg/dL (0.2-1.0); BLOOD UREA NITROGEN,BUN 53.0 mg/dL (7.0-18.0); CARBON DIOXIDE,CO2 12.0 mmol/L (21.0-32.0); CHLORIDE,CL 104.0 mmol/L (98-107); CREATININE 4.6 mg/dL (0.8-1.3); EST CRCL DRUG DOSING (CG) 14.06 mL/min; GLUCOSE RANDOM 150.0 mg/dL (74-106); POTASSIUM,K 6.1 mmol/L (3.5-5.1); PROTEIN TOTAL,TP 6.7 g/dL (6.4-8.2); SODIUM,NA 133.0 mmol/L (136-148)
[2025-05-08 12:18] LABS: ESTIMATED GFR 13.0 mL/min (>60)
[2025-05-08] MEDS ORDERED: 50% Dextrose in Water 50 ML Syringe IVPUSH PRN (12:38)
[2025-05-08] MEDS: Insulin Regular, Human 100 Units/ML 10 ML Vial IVPUSH ONE (13:24)
[2025-05-08] MEDS: 50% Dextrose in Water 50 ML Syringe IVPUSH ONE (13:24)
[2025-05-08] MEDS: Calcium Gluconate 10% 1 GM/10 ML SDV IVPUSH ONE (13:24)
[2025-05-08] MEDS: Norepinephrine Bit/D5W Premix 4 MG/250 ML BAG IV SCH (14:19)
[2025-05-08] MEDS: Thiamine 200 MG/2 ML MDV IVPUSH ONE (14:20)
== END 2025-05-08 15:46 ==
LOC: MW.ED 10:48
DX: L03.031 Cellulitis of right toe (principal); N19 Unspecified kidney failure; I95.9 Hypotension, unspecified; E11.9 Type 2 diabetes mellitus without complications; E78.00 Pure hypercholesterolemia, unspecified; I10 Essential (primary) hypertension; Z86.73 Personal history of transient ischemic attack (TIA), and cerebral infarction without residual deficits; Z79.899 Other long term (current) drug therapy; Z79.4 Long term (current) use of insulin; Z79.84 Long term (current) use of oral hypoglycemic drugs
CPT/HCPCS: 36415; 80053; 82947; 83605; 83735; 85025; 87040; 96361; 96365; 96367; 96375; 99285; J0612; J0692; J3411; J7030; 36410; 99284; J1815-GY